=== PATIENT | female | born 1935 | race Caucasian/White ===

== ENCOUNTER 2022-08-04 10:51 | Inpatient (IN) | payer MEDICARE, BC, SELFPAY ==
[2022-08-04] VITALS (31 sets, daily range): BP systolic 105–159; BP diastolic 57–93; PULSE 51–75; RESP 14–27; TEMP 36.6–36.9; O2SAT 94–98; BMI 23.2; BMI 24.5
--- NOTE | 2022-08-04 10:55 | ECG_ITS ---
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 Measurements Intervals [place] Rate: 62 P: 34 SD: 181 QRS: 12 QRSD: 82 T: 51 QT: 402 QTc: 409 Interpretive Statements SINUS RHYTHM No previous ECG available for comparison Electronically Signed On 08-06-2022 23:03:00 CDT by Irlanda Rey M.D. [id number]
--- NOTE | 2022-08-04 10:58 | XRR_ITS ---
PROCEDURE INFORMATION: Exam: XR Chest Exam date and time: 08/04/2022 11:10 AM Age: 86 years old Clinical indication: Pain; Chest pressure; Additional info: Chest pain TECHNIQUE: Imaging protocol: Radiologic exam of the chest. Views: 1 view. COMPARISON: No relevant prior studies available. FINDINGS: Lungs: No pulmonary vascular congestion, pulmonary edema or pneumonia. Minimal scarring or atelectasis in the lateral left lung base. Pleural spaces: No pleural effusion or pneumothorax. Heart/Mediastinum: The cardiac silhouette is not enlarged. Prior CABG. The mediastinal contours are normal. Vasculature: The thoracic aorta is tortuous. Bones/joints: Prior sternotomy. XR/XR chest 1V portable [id number] IMPRESSION: No acute finding.
--- NOTE | 2022-08-04 10:58 | W.ED.CHESTPA ---
HPI - Chest Pain General: Chief Complaint: Chest Pain Stated Complaint: CHEST PAIN Time Seen by Provider: 08/04/22 10:58 Source: patient Mode of arrival: EMS History of Present Illness: 86-year-old female presents emergency room with chest pain and began at around 7 AM this morning. She has been having chest pain for the last several weeks she has a known history of coronary artery disease and usually is seen at [facility] [place] [place] she previously had a CABG several years ago. She had seen her focused factory manager recently when she has an angiogram scheduled because of these recurrent episodes of chest pain. She did get relief of chest pain after given sublingual nitroglycerin by [facility]. She is still stating her pain is 3 out of 10 radiating into the arms and caused her to be short of breath and somewhat diaphoretic. MD complaint: chest pain and chest heaviness Onset (ago): hour(s) Timing of current episode: episodic Prior episodes: Yes Onset: during rest Pain location: substernal and left chest Severity: moderate Quality: tightness, aching and heaviness Relieving factors: nitroglycerin Exacerbating factors: nothing Associated symptoms: Reports dyspnea; Deny abdominal pain, diaphoresis, fever(s), leg edema, nausea, palpitations, sense of impending doom, syncope or vomiting Treatment prior to arrival: aspirin and nitroglycerin Review of Systems Const: Denies: fever(s) or diaphoresis ENMT: Denies: throat pain, ear or mastoid pain, nasal discharge or nasal congestion Card: Reports: chest pain; Denies: palpitations, irregular heart rhythm, edema or syncope Resp: Reports: dyspnea; Denies: productive cough or non-productive cough GI: Denies: abdominal pain, nausea or vomiting : Denies: flank pain, difficulty voiding, dysuria, urinary frequency or urinary urgency Skin/Breast: Denies: rash or pruritus PFSH ED PFSH: Medical History (Updated 08/04/22 @ 12:53 by Marty Zapata DO) Coronary artery disease Hyperlipidemia Surgical History (Updated 08/04/22 @ 12:53 by Marty Zapata DO) History of appendectomy History of tonsillectomy Hx of coronary artery bypass graft Hx of hysterectomy Social History (Updated 08/04/22 @ 11:15 by Marty Zapata DO) Smoking and tobacco status: former smoker Alcohol intake: current Alcohol intake frequency: few times a month Physical Exam Const: COMMON NORMALS: no acute distress GENERAL APPEARANCE: cooperative and comfortable ORIENTATION/CONSCIOUSNESS: Yes awake, Yes oriented to person, Yes oriented to place and Yes oriented to time HENMT: COMMON NORMALS: normocephalic, atraumatic and hearing grossly normal bilaterally HEAD & SCALP: normocephalic and atraumatic Resp: COMMON NORMALS: normal respiratory effort, No retractions, No use of accessory muscles and clear to auscultation bilaterally AUSCULTATION: clear to auscultation bilaterally Cardio: COMMON NORMALS: regular rate, regular rhythm and No murmurs present (Cardio) RATE: regular rate RHYTHM: regular rhythm GI: COMMON NORMALS: Soft to palpation and No hepatosplenomegaly present AUSCULTATION: Yes normoactive bowel sounds PALPATION: Yes Soft to palpation, No Tenderness to palpation present (GI), No Guarding due to palpation present (GI) and Yes No hepatosplenomegaly present Extremity: COMMON NORMALS: normal to inspection, capillary refill normal, no clubbing, cyanosis or edema, no calf tenderness and no pedal edema Neuro: SENSORIUM/ORIENTATION: Yes oriented to person, Yes oriented to place and Yes oriented to time Skin: COMMON NORMALS: no rashes or lesions noted GENERAL SKIN EXAM: no rashes or lesions noted Course Vital Signs: Vital signs: Vital Signs Pulse Rate 59 L 08/04/22 12:03 Respiratory Rate 19 H 08/04/22 11:25 Blood Pressure 141/79 08/04/22 12:03 Pulse Oximetry 97 08/04/22 12:03 Oxygen Delivery Ky thod 08/04/22 12:03 MDM - Chest Pain Medical Decision Making Able to get records from [facility] they were scanned into the chart. In 2014 patient had angiogram which showed severe disease she had a two-vessel bypass. 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 It was decided at that time to treat with aggressive risk factor modification and medically. Since then she was generally doing well until the last few weeks when these episodes began. I discussed the findings with her EKG and troponins are normal so far but she is requiring Nitropaste which did not completely eliminate her pain and then we switch her to a nitro drip. Reviewed with cardiology. They felt it would be appropriate to keep the patient and finish the rule out. If she ruled out she could either be discharged home with more aggressive treatment and then follow-up with [place] as previously scheduled or if she wished we could go ahead and complete the heart catheterization here. She states she wants to have the heart cath done to find out what is going on. I discussed with Dr. Marquis and we consulted Dr. Summers orders written Medical Records I reviewed the patient's medical records. Lab Data I reviewed the patient's lab results. : 08/04/22 11:00 08/04/22 11:00 Radiology Impressions Chest X-Ray 08/04/22 10:58 IMPRESSION: No acute finding. Laboratory Results WBC 10.9 10^3/uL (4.0-10.0) H 08/04/22 11:00 RBC 4.41 10^6/uL (4.1-5.3) 08/04/22 11:00 Hgb 13.5 g/dL (11.5-15.3) 08/04/22 11:00 Hct 41.3 % (37.0-47.0) 08/04/22 11:00 MCV 93.7 fl (81-99) 08/04/22 11:00 MCH 30.6 pg (28.0-34.0) 08/04/22 11:00 MCHC 32.7 g/dL (30.0-36.0) 08/04/22 11:00 RDW 14.8 % (12.1-15.1) 08/04/22 11:00 Plt Count 220 10^3/cmm (130-400) 08/04/22 11:00 MPV 10.7 fL (7.4-10.4) H 08/04/22 11:00 Neut % (Auto) 54.9 % 08/04/22 11:00 Lymph % (Auto) 33.9 % 08/04/22 11:00 [place] % (Auto) 6.6 % 08/04/22 11:00 Eos % (Auto) 3.5 % 08/04/22 11:00 Baso % (Auto) 0.6 % 08/04/22 11:00 Neut # (Auto) 6.00 10^3/uL (1.8-7.7) 08/04/22 11:00 Lymph # (Auto) 3.7 10^3/uL (0.8-4.8) 08/04/22 11:00 [place] # (Auto) 0.7 10^3/uL (0.2-0.9) 08/04/22 11:00 Eos # (Auto) 0.4 10^3/uL (0.0-0.8) 08/04/22 11:00 Baso # (Auto) 0.1 10^3/uL (0.0-0.1) 08/04/22 11:00 Nucleated RBC % (auto) 0 % 08/04/22 11:00 Nucleated RBCs # 0.0 /100WBC 08/04/22 11:00 Sodium 134 mmol/L (136-145) L 08/04/22 11:00 Potassium 4.3 mmol/L (3.5-5.1) 08/04/22 11:00 Chloride 102 mmol/L (98-107) 08/04/22 11:00 Carbon Dioxide 22 mmol/L (22-29) 08/04/22 11:00 Anion Gap 14.3 (5-19) 08/04/22 11:00 BUN 14 mg/dL (8-23) 08/04/22 11:00 Creatinine 0.8 mg/dL (0.5-0.9) 08/04/22 11:00 GFR Calculation Not Reportable 08/04/22 11:00 Glucose 106 mg/dL (65-115) 08/04/22 11:00 Calculated Osmolality 279 mOsm/kg (285-295) L 08/04/22 11:00 Calcium 8.8 mg/dL (8.5-10.5) 08/04/22 11:00 Total Bilirubin 0.3 mg/dL (0.15-1.2) 08/04/22 11:00 AST 20 U/L (0-32) 08/04/22 11:00 ALT 16 U/L (0-33) 08/04/22 11:00 Alkaline Phosphatase 59 U/L (35-105) 08/04/22 11:00 Troponin T Baseline 9 ng/L (0-10) 08/04/22 11:00 Total Protein 6.3 g/dL (6.6-8.7) L 08/04/22 11:00 Albumin 3.6 g/dL (3.5-5.2) 08/04/22 11:00 Globulin 2.7 g/dL (1.3-4.6) 08/04/22 11:00 Discharge Plan Discharge Patient Disposition: Admitted As Inpatient Clinical Impression: Unstable angina pectoris, Coronary artery disease, Hx of coronary artery bypass graft Condition: Stable Coding Level of Care Code ED Process Chemist for Chg Fwd Exam Detailed
--- NOTE | 2022-08-04 11:00 | PC.NURSE ---
Patient transferred from [facility] stretcher to ER bed and hooked up to monitors with senior staff accountant at bedside.
[2022-08-04 11:12] LABS: Basophils # 0.1 10^3/uL (0.0-0.1); Basophils % 0.6 %; Eosinophils # 0.4 10^3/uL (0.0-0.8); Eosinophils % 3.5 %; Hematocrit 41.3 % (37.0-47.0); Hemoglobin 13.5 g/dL (11.5-15.3); Lymphocytes # 3.7 10^3/uL (0.8-4.8); Lymphocytes % 33.9 %; Mean Corpuscular HGB Conc 32.7 g/dL (30.0-36.0); Mean Corpuscular Hemoglobin 30.6 pg (28.0-34.0); Mean Corpuscular Volume 93.7 fl (81-99); Mean Platelet Volume 10.7 fL (7.4-10.4); Monocytes # 0.7 10^3/uL (0.2-0.9); Monocytes % 6.6 %; Neutrophils % 54.9 %; Nucleated Red Blood Cells % 0 %; Platelet Count 220 10^3/cmm (130-400); Red Blood Count 4.41 10^6/uL (4.1-5.3); Red Cell Distribution Width 14.8 % (12.1-15.1); White Blood Count 10.9 10^3/uL (4.0-10.0)
[2022-08-04] MEDS: enoxaparin 60 mg/0.6 mL Syringe SUBCUT ×2 (11:23→21:58)
[2022-08-04] MEDS: nitroglycerin 1 gm/inch oint Pkt 1 INCH TOPICAL (11:24)
[2022-08-04 11:36] LABS: Alanine Aminotransferase 16 U/L (0-33); Albumin Level 3.6 g/dL (3.5-5.2); Alkaline Phosphatase 59 U/L (35-105); Anion Gap 14.3 (5-19); Aspartate Amino Transferase 20 U/L (0-32); Blood Urea Nitrogen 14 mg/dL (8-23); Calcium 8.8 mg/dL (8.5-10.5); Carbon Dioxide 22 mmol/L (22-29); Chloride 102 mmol/L (98-107); Creatinine Clr Calc Pharmacy 43.8832; Globulin 2.7 g/dL (1.3-4.6); Glucose 106 mg/dL (65-115); Osmolality Calculated 279 mOsm/kg (285-295); Potassium 4.3 mmol/L (3.5-5.1); Sodium 134 mmol/L (136-145); Total Bilirubin 0.3 mg/dL (0.15-1.2); Total Protein 6.3 g/dL (6.6-8.7); Troponin(5th) Baseline 9 ng/L (0-10)
[2022-08-04] MEDS: nitroglycerin drip 50 MG/250 ML PREMIX IV (12:08)
--- NOTE | 2022-08-04 12:33 | PC.NURSE ---
Pt is tolerating Nitro drip initiation. Denies pain over 5 at this time; drip will remain at 10mcg/min at this time.
--- NOTE | 2022-08-04 13:00 | ECG_ITS ---
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 Measurements Intervals [place] Rate: 53 P: 0 [place]: 203 QRS: 23 QRSD: 82 T: 48 QT: 432 QTc: 409 Interpretive Statements SINUS BRADYCARDIA Compared to ECG 08/04/2022 10:57:51 Sinus rhythm no longer present Electronically Signed On 08-06-2022 23:16:04 CDT by Irlanda Rey M.D. [id number]
[2022-08-04 14:07] LABS: Troponin 5 2HR 8.64 ng/L (0-10)
--- NOTE | 2022-08-04 14:21 | P.HP_ITS ---
Providers/Chief Complaint Admitting Physician: Shade Capps MD Chief Complaint: CHEST PAIN History of Present Illness Sheila Ybarra is a 86 year old female with history of hypothyroidism, post two- vessel CABG in 2015 who gets most of her care at [facility] was brought into the ER through [facility] today. History taken through the patient and family member at bedside. As per the patient he has been having on and off episodes of chest pain for last 2 to 3 months more so related 2 weeks for which she had seen her outpatient construction sales representative diagnosed a few had scheduled her for an angiogram. Today patient was resting when she developed chest pain along with dizziness and nausea with feeling of chest pressure hence EMS was called and she was brought to the ER. Currently patient is on nitro drip. She denies of having any active chest pain or chest pressure currently. She states she has been taking her medications re gularly though there have been times on and off in between when she forgets. In the ER she was given 1 full dose of Lovenox and started on nitro drip. Review of Systems General: Reports: 10 or more systems reviewed and unremarkable except in HPI and below Const: Denies: fever(s), chills, body aches, change in appetite, change in weight, malaise, night sweats, diaphoresis, change in sleep pattern, daytime sleepiness or snoring Eyes: Denies: change in vision, blurry vision, photophobia, eye discomfort or eye discharge ENMT: Denies: throat pain, enlarged tonsils, hoarseness, mouth pain, oral sores, dry mouth, tinnitus, nasal congestion or post nasal drip Card: Denies: chest pain, palpitations, irregular heart rhythm, edema, swelling of feet/ankles, lightheadedness, syncope, pre-syncope, dyspnea on exertion, orthopnea, leg pain with exertion or acrocyanosis Resp: Denies: dyspnea, productive cough, non-productive cough, wheezing, stridor, pain on inspiration, change in phlegm color, hemoptysis or chest congestion GI: Denies: abdominal pain, nausea, vomiting, hematemesis, coffee ground emesis, dysphagia, heartburn, diarrhea, constipation, bloating, GI cramping, change in bowel habits, pain on defecation, hematochezia or melena : Denies: flank pain, dysuria, urinary frequency, urinary urgency, urinary hesitancy, nocturia or hematuria Musc: Denies: neck pain, back pain, extremity pain, joint pain, joint swelling, joint redness, joint stiffness or limited range of motion Neuro: Denies: headache(s), numbness in extremities, weakness in extremities, sensory changes, lack of coordination, difficulty walking, frequent falls, dizziness, vertigo, confusion, Slurred speech present, difficulty communicating thoughts or seizure-like activity Psych: Denies: anxiety, depression, mood swings, panic attacks, hopelessness or irritability Endo: Denies: polyuria, polydipsia, tired all the time, cold intolerance, excessive sweating, flushing or heat intolerance Adriano/Lymph: Denies: easy bruising or easy bleeding All/Imm: Denies: tongue swelling, facial swelling or acute wheezing Medications/Allergies Home Medications Medication Instructions Recorded Confirmed Last Taken Type aspirin 81 mg chewable tablet 81 mg PO DAILY 08/04/22 08/04/22 08/04/22 History 4 tabs cetirizine 10 mg tablet 10 mg PO DAILY PRN Allergy Symptoms 08/04/22 08/04/22 Unknown History clopidogrel 75 mg tablet 75 mg PO DAILY 08/04/22 08/04/22 08/03/22 History cyanocobalamin (vitamin B-12) 1,000 mcg PO DAILY 08/04/22 08/04/22 08/03/22 History 1,000 mcg tablet (Vitamin B-12) gabapentin 300 mg capsule See Rx Instructions .Route .COMPLEX 08/04/22 08/04/22 08/03/22 History levothyroxine 75 mcg tablet 75 mcg PO DAILY 08/04/22 08/04/22 08/04/22 History pantoprazole 40 mg tablet,delayed 40 mg PO DAILY 08/04/22 08/04/22 08/04/22 History release simvastatin 40 mg tablet 40 mg PO DAILY 08/04/22 08/04/22 08/03/22 History tramadol 50 mg tablet 50 mg PO BID PRN Pain 08/04/22 08/04/22 Unknown History Allergies Allergy/AdvReac Type Severity Reaction Status Date / Time hydrocodone Allergy Unknown Unknown Verified 08/04/22 10:56 PFSH Acute PFSH: Medical History (Updated 08/04/22 @ 14:30 by Shade Capps MD) Coronary artery disease Hyperlipidemia Surgical History (Updated 08/04/22 @ 12:53 by Marty Zapata DO) History of appendectomy History of tonsillectomy Hx of coronary artery bypass graft Hx of hysterectomy Social History (Updated 08/04/22 @ 11:15 by Marty Zapata DO) Smoking and tobacco status: former smoker Alcohol intake: current Alcohol intake frequency: few times a month Vitals/I&O/Wt Last Vital Signs Pulse 59 L 08/04/22 12:03 Resp 19 H 08/04/22 11:25 BP 134/73 08/04/22 13:38 Pulse Ox 97 08/04/22 13:38 O2 Del Method 08/04/22 13:38 08/03/22 08/04/22 08/04/22 22:59 06:59 14:59 Intake Total 3 / 3 Balance 3 / 3 Weight last 48 hrs Weight 57.606 kg Physical Exam Narrative: General: No acute distress, AO x3, currently chest pain-free on nitro drip HEENT: PERRLA, pupils bilaterally equal and reactive Chest: Normal vesicular breath sounds, no added sounds, equal good air entry bilaterally CVS: S1-S2 regular, no murmurs, no tachycardia, no gallops, no rubs Abdomen: Soft, nontender, no organomegaly, bowel sounds present Neuro: No focal deficits, no facial deformity, AO x3, power 5/5 in all limbs Data : 08/04/22 11:00 08/04/22 11:00 A&P Assessment and plan (1) Unstable angina pectoris: With history of two-vessel CABG. Worsening angina over the last 3 months. Currently at rest. On nitro drip. Been scheduled for cardiac angiogram as an outpatient by her construction sales representative. Continue with nitro drip. Aspirin 325 mg 1 time, atorvastatin 80 mg 1 time. Lovenox 1 mg/kg body weight every 12 hourly. Cycle troponin, morphine as needed. Continue home dose of aspirin, Plavix, statin. Cannot use beta-maribel given bradycardia. Check echocardiogram. Check A1c, lipid panel, D-dimer, INR. Cardiology consulted from the ER. Patient will most likely need a cardiac angiogram. Patient is agreeable. (2) Hx of coronary artery bypass graft: (3) Hyperlipidemia: (4) Bradycardia: Plan Full code. N.p.o. till seen by cardiology. 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
--- NOTE | 2022-08-04 14:25 | USCV_ITS ---
Sheila Ybarra Age: 86 Gender: F : 1935 Exam Date: 08/04/2022 16:17 Ordering Phys: Shade Capps MD Technologist: Exam [place] [facility] [place]: chest pain BP: 155 / 72 HR: 60 Rhythm: Sinus Technical Quality: Suboptimal MEASUREMENTS (Male / Female) Normal Values 2D ECHO LV Diastolic Diameter PLAX 3.7 cm 4.2 - 5.9 / 3.9 - 5.3 cm LV Systolic Diameter PLAX 1.9 cm IVS Diastolic Thickness 0.8 cm 0.6 - 1.0 / 0.6 - 0.9 cm IVS Systolic Thickness 1.1 cm LVPW Diastolic Thickness 0.9 cm 0.6 - 1.0 / 0.6 - 0.9 cm LVPW Systolic Thickness 1.2 cm LVOT Diameter 2.0 cm LV Ejection Fraction 2D Teich 79.7 % LV Ejection Fraction MOD 2C 68.2 % LV Ejection Fraction 2C AL 68.3 % LA Diameter 3.5 cm IVC Diameter 1.0 cm M-MODE Aortic Annulus Diameter 2.4 cm LA Ao Ratio MM 1.6 MV E Point Septal Separation 1.0 cm DOPPLER AV Peak Velocity 130.0 cm/s LVOT Peak Velocity 87.0 cm/s AV Area Cont Eq vti 2.0 cm squared AV Area Cont Eq pk 2.0 cm squared MV Area PHT 5.0 cm squared Mitral E to A Ratio 0.7 MV E' Velocity 44.0 cm/s Mitral E to MV E' Ratio 11.1 Mitral E to LV E' Lateral Ratio 11.0 Mitral E to LV E' Septal Ratio 11.4 TR Peak Velocity 225.3 cm/s TR Peak Gradient 20.3 mmHg TV Peak E Velocity 88.0 cm/s Right Atrial Pressure 3.0 mmHg Pulmonary Artery Systolic Pressu 23.3 mmHg PV Peak Velocity 92.0 cm/s FINDINGS Left Ventricle Normal left ventricular size, systolic function and wall thickness, with no diagnostic regional wall motion abnormalities. Left ventricular ejection fraction is estimated at 55-60 %. Grade I diastolic dysfunction (abnormal relaxation filling pattern), normal to mildly elevated filling pressures. Abnormal (paradoxical) septal motion consistent with postoperative status. Right Ventricle Normal right ventricular size and systolic function. Right ventricular systolic pressure 21 mmHg. Right Atrium Normal right atrial size. Left Atrium Mildly increased left atrial size. Mitral Valve Mild mitral annular calcification. Mildly thickened mitral valve. No mitral valve stenosis. Trace mitral valve regurgitation. Aortic Valve Aortic valve not well visualized. No aortic valve stenosis. Mild aortic valve regurgitation. Tricuspid Valve Structurally normal tricuspid valve. Trace tricuspid valve regurgitation. Pulmonic Valve Pulmonic valve not well visualized. No significant pulmonary valve regurgitation. Pericardium No pericardial effusion. Aorta Normal size aortic root and proximal ascending aorta. IVC Normal sized inferior vena cava. CONCLUSIONS 1. Normal left ventricular size, systolic function and wall thickness, with no diagnostic regional wall motion abnormalities. Left ventricular ejection fraction is estimated at 55 %. Grade I diastolic dysfunction (abnormal relaxation filling pattern), normal to mildly elevated filling pressures. 2. Mildly increased left atrial size. 3. Mild aortic valve regurgitation. 4. No prior similar studies to compare. Irlanda Rey MD (Electronically Signed) Final Date: 04 August 2022 18:02 S
[2022-08-04 14:49] LABS: INR 1.11 (0.8-1.2)
--- NOTE | 2022-08-04 14:51 | ECG_ITS ---
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 Measurements Intervals [place] Rate: 58 P: 28 SC: 196 QRS: 8 QRSD: 92 T: 50 QT: 443 QTc: 437 Interpretive Statements SINUS BRADYCARDIA Compared to ECG 08/04/2022 13:00:25 No significant changes Electronically Signed On 08-06-2022 23:02:37 CDT by Irlanda Rey M.D. [id number]
[2022-08-04 14:52] LABS: D Dimer 1.22 ug/mIFEU (0-0.59)
--- NOTE | 2022-08-04 14:52 | PM.CONSULT ---
Providers/Reason For Consult Consulting Physician/Specialty*: Dr. Rey, Cardiology Reason for Consult*: Chest pain Attending Physician: Shade Capps MD History of Present Illness History of Present Illness Sheila Ybarra is a 86 year old female with past medical history of coronary artery disease, s/p CABG x2 on 20 November 2014 (POZO to distal LAD and vein graft to obtuse marginal), dyslipidemia, hypothyroidism, hypertension, gastroesophageal reflux disease, history of TIA and arthritis. She usually follows up with Dr. Moreno at [facility]. Since May she has been having on and off episodes of chest discomfort described as someone sitting on her chest retrosternal in location. She saw her hospice physician and was due to have outpatient coronary angiogram. Earlier today her chest discomfort was worse and hence she decided to come to the hospital. [facility] brought her here. Patient was started on nitroglycerin drip and at the time of evaluation she is chest pain-free. She complains of associated shortness of breath and intermittent positional dizziness. Denies any nausea or vomiting or diaphoresis. No productive cough or URI-like symptoms or UTI-like symptoms. No recent sick contacts. Her most recent coronary angiogram was on 30 January 2017 that showed ostial left main 60% stenosis, mid LAD 80% stenosis, 80% ostial circumflex stenosis. RCA with scattered 40% stenosis. Patent SVG to OM1 and POZO to LAD. Normal LV function with EF of 60% and normal gradient across aortic valve. EKG in the ER revealed sinus rhythm with no ST-T wave changes suggestive of ischemia. Review of Systems Const: Denies: fever(s), chills, change in appetite, change in weight, fatigue or malaise Eyes: Denies: change in vision ENMT: Denies: throat pain, swelling of lips/tongue, oral sores, bleeding gums, nasal congestion or epistaxis Card: Reports: chest pain, lightheadedness and dyspnea on exertion; Denies: irregular heart rhythm, edema, syncope or orthopnea Resp: Denies: dyspnea or chest congestion GI: Denies: abdominal pain, nausea, vomiting, hematemesis, heartburn, diarrhea, constipation, change in bowel habits, hematochezia or melena : Denies: difficulty voiding, dysuria, oliguria or hematuria Musc: Denies: back pain, extremity swelling, joint pain or muscle weakness Skin/Breast: Denies: rash or erythema Neuro: Reports: dizziness; Denies: headache(s), weakness in extremities, difficulty walking or confusion Psych: Denies: anxiety, depression or irritability Endo: Denies: tired all the time Adriano/Lymph: Denies: easy bruising, easy bleeding, petechiae or purpura All/Imm: Denies: throat swelling, tongue swelling or acute wheezing Medications/Allergies Home Medications Medication Instructions Recorded Confirmed Last Taken Type aspirin 81 mg chewable tablet 81 mg PO DAILY 08/04/22 08/04/22 08/04/22 History 4 tabs cetirizine 10 mg tablet 10 mg PO DAILY PRN Allergy Symptoms 08/04/22 08/04/22 Unknown History clopidogrel 75 mg tablet 75 mg PO DAILY 08/04/22 08/04/22 08/03/22 History cyanocobalamin (vitamin B-12) 1,000 mcg PO DAILY 08/04/22 08/04/22 08/03/22 History 1,000 mcg tablet (Vitamin B-12) gabapentin 300 mg capsule See Rx Instructions .Route .COMPLEX 08/04/22 08/04/22 08/03/22 History levothyroxine 75 mcg tablet 75 mcg PO DAILY 08/04/22 08/04/22 08/04/22 History pantoprazole 40 mg tablet,delayed 40 mg PO DAILY 08/04/22 08/04/22 08/04/22 History release simvastatin 40 mg tablet 40 mg PO DAILY 08/04/22 08/04/22 08/03/22 History tramadol 50 mg tablet 50 mg PO BID PRN Pain 08/04/22 08/04/22 Unknown History Allergies Allergy/AdvReac Type Severity Reaction Status Date / Time hydrocodone Allergy Unknown Unknown Verified 08/04/22 10:56 ciprofloxacin AdvReac Intermediate ADR-Shakine Verified 08/04/22 15:45 ss Current Medications Generic Name Dose Route Start Last Admin Trade Name Freq PRN Reason Stop Dose Admin Nitroglycerin/Dextrose 50 mg in 250 mls @ 0 mls/hr 08/04/22 12:00 08/04/22 13:08 Nitroglycerin Drip IV 15 mcg/min .Q0M JOSH 4.5 mls/hr Titration Protocol Per Protocol PFSH Acute PFSH: Medical History Coronary artery disease Hyperlipidemia Surgical History History of appendectomy History of tonsillectomy Hx of coronary artery bypass graft Hx of hysterectomy Social History Smoking and tobacco status: former smoker Alcohol intake: current Alcohol intake frequency: few times a month Vitals/I&O/Wt Last Vital Signs Pulse 59 L 08/04/22 12:03 Resp 19 H 08/04/22 11:25 BP 134/73 08/04/22 13:38 Pulse Ox 97 08/04/22 13:38 O2 Del Method 08/04/22 13:38 08/03/22 08/04/22 08/04/22 22:59 06:59 14:59 Intake Total 3 / 3 Balance 3 / 3 Weight last 48 hrs Weight 127 lb Physical Exam Narrative: GENERAL: Averagely built and averagely nourished in no acute distress HEENT: Extraocular movement intact. No pallor or icterus. NECK: central trachea, No JVD, No carotid bruit. CARDIOVASCULAR SYSTEM: S1-S2 regular. No murmur rubs or gallops. RESPIRATORY SYSTEM: Chest clear to auscultation. No wheezes rhonchi or rubs heard. No use of accessory muscles. ABDOMEN: Soft, nontender and nondistended. Normal bowel sounds present. No hepatosplenomegaly appreciated. EXTREMITIES: No cyanosis or edema. No signs of chronic venous insufficiency. 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 No focal neurological deficits. SKIN: Normal turgor and temperature. PSYCH: Normal insight and judgment. Data : 08/04/22 11:00 08/04/22 11:00 A&P Assessment and plan (1) Unstable angina pectoris: Currently patient is on nitro gtt. @ 15 -Patient is currently chest pain-free. -Received therapeutic Lovenox in the ER and is on aspirin and Plavix chronically at home. Risks and benefits were discussed with the patients. Possible complications including risk of heart attack stroke and , coronary perforation, coronary dissection, arrhythmia, cardiac tamponade in urgent CABG were discussed with the patient as well. Plan is to proceed for the procedure in the morning. (2) Coronary artery disease: S/p CABG x2 (3) Hyperlipidemia: Plan Hypertension Hypothyroidism History of TIA Gastroesophageal reflux disease Osteoarthritis Consult Attestations Time Spent in Patient Care: Greater than 35 minutes Coding Level of Care Code Acute Associate Media Director for Taishag Fwd Diagnoses Unstable angina pectoris I20.0 Coronary artery disease I25.10 Hyperlipidemia E78.5
[2022-08-04] MEDS: aspirin 325 mg EC Tablet PO (14:55)
[2022-08-04] MEDS: atorvastatin 40 mg Tablet 80 MG PO (14:55)
--- NOTE | 2022-08-04 15:10 | PC.NURSE ---
received into room 276-2 from er, via stretcher, at 1445.report received.pt is alert and awake and oriented x 4.sr/sb on monitor.on ntg drip at 15 mcgs.vss.denies any chest pain or any pain at all.oriented to room environment.instructed to notify staff for any sob,chest pain,sweating,nausea or for any concerns at all.pt verb understanding of instructions.
[2022-08-04 15:15] LABS: Troponin 5 2HR Delta -0.36 ABS# (0-10)
[2022-08-04 15:17] LABS: Iron 61 ug/dL (37-145); NT Pro B Type Natriuretic Pept 195 pg/mL (0-450); Percent Saturation 20.9 % (20-50); Total Iron Binding Capacity 291 mcg/dl; Unsaturated Iron Binding 230 ug/dL (112-347); Vitamin B12 1118 pg/mL (232-1245)
[2022-08-04 15:41] LABS: Urine Appearance Clear (CLEAR); Urine Color Yellow (Yellow); pH Urine 7 (5-7)
[2022-08-04 15:42] LABS: Add Urine Culture? No; Add Urine Microscopic? YES; Bacteria Urine TRACE /hpf; Bilirubin Urine Neg (Negative); Blood Urine Neg (Negative); Glucose Urine UA Norm (Normal); Ketones Urine Negative (Negative); Leukocyte Esterase Urine Trace (Negative); Nitrate Urine Negative (Negative); Protein Urine Neg (Negative); Specific Gravity, Urine 1.005 (1.005-1.030); Squamous Epithelial Cell Urine RARE /hpf (0-5); Urobilinogen Urine Norm (Negative); WBC Urine 0-4 /hpf (0-5)
[2022-08-04 15:46] LABS: Amphetamines Screen Urine Negative (Negative); Barbiturates Screen Urine Negative (Negative); Benzodiazepines Screen Urine Negative (Negative); Cocaine Screen Urine Negative (Negative); Opiate Screen Urine Negative (Negative); PCP Screen Urine Negative (Negative); THC Screen Urine Negative (Negative)
[2022-08-04 16:51] LABS: Thyroid Stimulating Hormone 1.79 uIU/mL (0.27-4.20)
[2022-08-04 17:15] LABS: Folate Level > 20.0 ng/mL (4.8-37.3)
--- NOTE | 2022-08-04 17:19 | ECG_ITS ---
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 Measurements Intervals Everetts Rate: 53 P: -2 MD: 205 QRS: 5 QRSD: 87 T: 46 QT: 448 QTc: 423 Interpretive Statements SINUS BRADYCARDIA Compared to ECG 08/04/2022 14:51:02 No significant changes Electronically Signed On 08-06-2022 23:13:55 CDT by Irlanda Rey M.D. [id number]
[2022-08-04 17:48] LABS: Troponin 5 6HR 9.23 ng/L (0-10)
[2022-08-04] MEDS: ferrous gluconate 324 mg Tablet PO (18:05)
--- NOTE | 2022-08-04 18:28 | PC.NURSE ---
no chest pain reported since admission to floor.nitro drip remains at 15 mcg/min.bp stable
[2022-08-04 18:32] LABS: Troponin 5 6HR Delta 0.23 ng/L (0-12)
[2022-08-04] MEDS: gabapentin 300 mg Capsule PO (19:47)
[2022-08-05] VITALS (93 sets, daily range): BP systolic 96–154; BP diastolic 52–76; PULSE 48–87; RESP 12–50; TEMP 36.4–37; O2SAT 91–98
[2022-08-05 05:02] LABS: Basophils # 0.1 10^3/uL (0.0-0.1); Basophils % 0.5 %; Eosinophils # 0.4 10^3/uL (0.0-0.8); Eosinophils % 4.1 %; Hematocrit 41.3 % (37.0-47.0); Hemoglobin 13.4 g/dL (11.5-15.3); Lymphocytes # 3.9 10^3/uL (0.8-4.8); Mean Corpuscular HGB Conc 32.4 g/dL (30.0-36.0); Mean Corpuscular Hemoglobin 30.6 pg (28.0-34.0); Mean Corpuscular Volume 94.3 fl (81-99); Mean Platelet Volume 10.9 fL (7.4-10.4); Monocytes # 0.7 10^3/uL (0.2-0.9); Monocytes % 6.5 %; Neutrophils # 5.16 10^3/uL (1.8-7.7); Neutrophils % 50.6 %; Nucleated Red Blood Cells % 0 %; Platelet Count 191 10^3/cmm (130-400); Red Blood Count 4.38 10^6/uL (4.1-5.3); Red Cell Distribution Width 15.1 % (12.1-15.1); White Blood Count 10.2 10^3/uL (4.0-10.0)
[2022-08-05 05:20] LABS: Estmated Average Glucose 108; Hemoglobin A1C 5.4 % (4.0-6.0)
[2022-08-05 05:30] LABS: Alanine Aminotransferase 15 U/L (0-33); Albumin Level 3.6 g/dL (3.5-5.2); Alkaline Phosphatase 59 U/L (35-105); Anion Gap 13.1 (5-19); Aspartate Amino Transferase 20 U/L (0-32); Blood Urea Nitrogen 9 mg/dL (8-23); Calcium 8.6 mg/dL (8.5-10.5); Carbon Dioxide 23 mmol/L (22-29); Chloride 105 mmol/L (98-107); Cholesterol 165 mg/dL (0-200); Globulin 2.5 g/dL (1.3-4.6); Glucose 82 mg/dL (65-115); HDL Cholesterol 55 mg/dL (60-100); LDL Cholesterol Calculated 91 mg/dL (50-129); Magnesium 2.3 mg/dL (1.7-2.3); Osmolality Calculated 282 mOsm/kg (285-295); Phosphorus 2.9 mg/dL (2.5-4.5); Potassium 4.1 mmol/L (3.5-5.1); Sodium 137 mmol/L (136-145); Total Bilirubin 0.5 mg/dL (0.15-1.2); Total Protein 6.1 g/dL (6.6-8.7); Triglycerides 93 mg/dL (0-150); VLDL Cholestrol Calculation 19 mg/dL (0-30)
[2022-08-05] MEDS: sodium chloride 0.9% 1,000 ML 50 ML IV (05:45)
[2022-08-05] MEDS: diphenhydrAMINE 50 mg Capsule PO (07:49)
[2022-08-05] MEDS: ferrous gluconate 324 mg Tablet PO ×2 (07:49→17:39)
--- NOTE | 2022-08-05 08:37 | XACV_ITS ---
Exam Room: [facility] Ht: 157 cm Wt: 61 kg BSA: 1.64 m2 Gender: Female : 1935 Exam Priority: Routine Procedure(s): Procedure Description: Diagnostic procedure Procedure Description: Venous Graft Catheterization Procedure Description: POZO Graft Catheterization Procedure Description: Coronary Angiography Diagnostic Cath Status: Urgent Diagnostic Findings * 86-year-old woman with past medical history of CAD s/p CABG x2 (POZO to distal LAD and vein graft to obtuse marginal in November 2014), dyslipidemia, hypertension, hypothyroidism, h/o TIA and gastroesophageal reflux disease. She presented with worsening chest discomfort described as someone sitting on her chest retrosternal location and was started on nitroglycerin drip. * Angiography shows a right coronary dominant system. * Normal caliber left main with ostial 60% stenosis. * Normal caliber left anterior descending artery that wraps around the apex. Mid LAD discrete 80% stenosis. * Circumflex artery with ostial 70% stenosis. Mid circumflex with mild 20% stenosis. * Right coronary artery with minor luminal irregularities. * Patent saphenous venous graft to first obtuse marginal. * Patent POZO to LAD. Conclusions 1. Right coronary artery with minor luminal irregularities. 2. Patent saphenous venous graft to first obtuse marginal. 3. Patent POZO to LAD. Recommendations * Return to inpatient for close monitoring and routine cath care. * Risk factor modification for secondary prevention. * Statin and aspirin 81mg lifelong, if tolerated. Pressures Phase:Rest AO : 76 / 49 ( 63 ) @ 10:26:00 AM 71 / 66 ( 50 ) @ 10:33:00 AM 117 / 54 ( 80 ) @ 10:49:00 AM Clinical Evaluation EBL: 5mL-10mL Procedural Details Procedure Consent Obtained. Admit Source: In Patient. Pre-Procedure Time Out. Identified patient by full name and date of as verbalized by the patient/guarantor. Does the consent match the physician's order: Yes. Accurate & Complete Informed Consent: Yes. Inpatient/Outpatient History & Physical on Chart: Yes. If H&P is completed, is and addenduem needed: N/A; If yes, is the addendum complete: N/A. Visualize and Verify Site with Patient/Guarantor: N/A. Relevant Radiology Images available: N/A. Pre-op teaching completed and patient verbalized understanding. The risks, benefits, and alternatives of sedation and/or procedure were discussed by physician. The patient agrees to continue. Procedure started. [facility] Clinical Fraility Score: 4: Vulnerable. 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 Chest Pain Symptom Assessment: Typical Angina Symptoms. Correct patient, site and procedure confirmed by cath team. Current diagnosis: Unstable angina. PERRLA. Strong, equal hand lead vulcanizing operator bilaterally. Lungs clear x 5 lobes. IV Site on Arrival: 20 gauge in the right forearm. IV Fluids: 0.9% NaCl at KVO. 100 mL infused prior to lab technician. Pre Procedural Pulses: bilateral dorsalis pedis was 3+. Pre Procedural Pulses: bilateral posterior tibial was 3+. Oxygen started at 2liters/min via nasal canula. right groin was prepped with chloroprep then draped in the usual sterile fashion. left groin was prepped with chloroprep then draped in the usual sterile fashion. Baseline sample Acquired. HR: 59 BPM. Physician notified. Physician arrived. Physician scrubbed in. Immediate Pre-Procedure Time Out. Correct Patient: Yes; Correct Procedure: Yes; Correct Site: Yes; Correct Patient Position: Yes; Correct Supplies: Yes; Dried Flammable Prep: Yes; Blood Products Available: N/A;. Lidocaine 1% infiltrated to the right groin. Arterial access obtained with micropuncture set. A 5 albanian JL4 catheter in over wire. Unable to engage catheter. Catheter removed over the standard wire. A 6 albanian JL5 catheter in over wire. Unable to engage catheter. Catheter removed over the standard wire. A 6 albanian JL3.5 catheter in over wire. Multiple views taken of left coronary artery. Catheter out. A 5 albanian JR4 catheter in over wire. Multiple views taken of right coronary artery. SVG's to OM visualized and patent. Exchange wire inserted into JR4. Catheter removed. A 5 albanian IM catheter in over wire. POZO to LAD visualized. Catheter out. A Suture was successful obtaining hemostatsis at the Right Femoral artery insertion site. Sheath(s) sutured into position with 2-0 silk and sterile 4x4's and Op-site applied over the site. No oozing or signs and symptoms of hematoma noted. Post Procedure: Pulses reassessed and unchanged. PERRLA. Strong, equal hand lead vulcanizing operator bilaterally. No VTE prophylaxis required. Medication's Wasted: Lidocaine 1% = 3 mL. Medication's Wasted: Other = Fentanyl 50 mcg. Medication's Wasted: Other = Versed 1mg. Total IV fluids: 97 mL. Post-op diagnosis: Non obstructive CAD, Patent grafts. Complications: none. Estimated blood loss: 5mL-10mL. Responsiveness - Normal response to verbal stimuli; alert and oriented, PERRLA. Airway - Unaffected, no intervention required; spontaneous ventilation. Circulation: W/N/L, pulses unchanged. Nausea/Vomiting: No. Procedure completed. Patient transferred by bed to [facility]. Vital chart was stopped. Access Site Site: Right Femoral artery Sheath Size: 6 Fr Hemostasis Method: Suture Hemostasis Success: Successful Procedure Medications Start: 9:16 AM Stop: 9:16 AM Medication: Versed Amount: 1 mg Route: I.V. Start: 9:16 AM Stop: 9:16 AM Medication: Fentanyl Amount: 50 mcg Route: I.V. Start: 9:20 AM Stop: 9:20 AM Medication: Versed Amount: 1 mg Route: I.V. Start: 9:52 AM Stop: 9:52 AM Medication: Heparin Amount: 4000 units Route: I.V. I, the attending physician, have reviewed and verified all procedure medications. Yes, all medications given per verbal order History/Risk Factors Hypertension: Yes Dyslipidemia: Yes Peripheral Arterial Disease (PAD): No Myocardial Infarction (DC): No Obesity: No Renal Disease: No Tobacco Use: Former Prior Interventions PCI: No CABG: Yes Valve Surgery: No Report Signatures Amended by Irlanda Rey MD on 08/07/2022 04:39 PM Finalized by Irlanda Rey MD on 08/07/2022 04:38 PM
[2022-08-05] MEDS: atorvastatin 40 mg Tablet 20 MG PO (08:50)
[2022-08-05] MEDS: pantoprazole DR 40 mg Tablet PO (08:50)
[2022-08-05] MEDS: levothyroxine 75 mcg Tablet PO (08:51)
[2022-08-05] MEDS: aspirin 81 mg Chew Tablet PO (08:51)
[2022-08-05] MEDS: clopidogrel 75 mg Tablet PO (08:51)
[2022-08-05] MEDS: gabapentin 300 mg Capsule PO (08:51)
--- NOTE | 2022-08-05 09:07 | W.PM.OPSUD ---
Surgery/Procedure H&P Update DATE OF PROCEDURE: August 05, 2022 DATE H&P PERFORMED: 08/04/22 H&P UPDATE INFORMATION: I have reviewed H&P completed within last 30 days, I have examined patient prior to procedure and No changes to prior documentation PREOP DIAGNOSIS: Unstable angina PRIMARY INDICATION FOR PROCEDURE: Unstable angina PLANNED PROCEDURE: Operation Date: 08/05/22 09:00 Proposed Procedures p Cardiac Catheterization(Left) - Irlanda Rey MD PATIENT REASSESSED PRIOR TO SEDATION, WITH NO CHANGE NOTED: Yes PHYSICAL EXAM: alert, oriented x 3, clear to auscultation bilaterally and regular rate & rhythm AIRWAY EVAL/ANESTHESIA PLAN: normal airway, ASA III, Monitored Anesthesia, Local Anesthesia, Risks, benefits & alternatives of sedation and/or procedure discussed and Patient agrees to continue as planned
--- NOTE | 2022-08-05 09:13 | PC.NURSE ---
patient left floor at 0900 for labor relations specialist.
[2022-08-05] MEDS: ondansetron 2 mg/ML SDV 2 mL 4 MG IVP ×2 (11:17→19:29)
--- NOTE | 2022-08-05 11:55 | PC.NURSE ---
Pt returned from laboratory monitor at 1014 with right femoral sheath in place. No hematoma noted on arrival. Vitals stable. Patient instructed to leave leg straight until sheath is removed and then afterward. Handoff report received from laboratory monitor. Family with patient at bedside.
[2022-08-05] MEDS: sodium chloride 0.9% 1,000 ML 75 ML IV ×2 (12:54→19:31)
--- NOTE | 2022-08-05 13:09 | P.PN_ITS ---
Subjective Subjective: This morning. Family at bedside. Patient just returned from cardiac catheterization procedure. Still slightly drowsy. Denies any chest pain, shortness of breath at this time. Vitals/I&O/Wt Last Vital Signs Temp 98.6 F 08/05/22 07:41 Pulse 51 L 08/05/22 11:58 Resp 20 H 08/05/22 11:58 BP 149/68 08/05/22 11:58 Pulse Ox 95 08/05/22 11:58 O2 Del Method 08/05/22 11:58 08/04/22 08/05/22 08/05/22 22:59 06:59 14:59 Intake Total 370 / 373 90.375 / 90.375 Output Total 300 / 300 Balance 70 / 73 90.375 / 90.375 Weight last 48 hrs Weight 63.56 kg Weight 60.923 kg Weight 57.606 kg Physical Exam Narrative: General: No acute distress, slightly drowsy, is postprocedure., currently chest pain-free laying in bed. HEENT: EOMI Chest: Chest clear to auscultation CVS: S1-S2 regular, no gross murmurs Abdomen: Soft, nontender, no organomegaly, bowel sounds present Neuro: Nonfocal. Data : 08/05/22 04:41 08/05/22 04:41 A&P Assessment and plan (1) Unstable angina pectoris: With history of two-vessel CABG.? Worsening angina over the last 3 months.? Currently at rest. On nitro drip. Been scheduled for cardiac angiogram as an outpatient by her professor of special education. Aspirin 325 mg 1 time, atorvastatin 80 mg 1 time. Lovenox 1 mg/kg body weight every 12 hourly. morphine as needed. Continue home dose of aspirin, Plavix, statin.? Cannot use beta-maribel given bradycardia. Check echocardiogram. Check A1c, lipid panel, D-dimer, INR. Cardiology consulted from the ER.? Patient had angiogram today. Official results pending. Will discuss with cardiology regarding results. Plan to medically manage at this time. Grafts are patent. (2) Coronary artery disease: S/p CABG x2 (3) Hyperlipidemia: Plan Hypertension Hypothyroidism History of TIA Gastroesophageal reflux disease Osteoarthritis Attestations Medical Necessity Statement*: Post cardiac catheterization today. Continue to monitor in hospital today for postop care. Reassess patient tomorrow. Possible discharge within next 24 to 48 hours. Coding Level of Care Code Acute Mixed Crop And Livestock Farmer for Chg Fwd Diagnoses Unstable angina pectoris I20.0 Coronary artery disease I25.10 Hyperlipidemia E78.5
[2022-08-05 13:57] LABS: Partial Thromboplastin Time 167.4 SECONDS (23.9-36.7)
--- NOTE | 2022-08-05 16:01 | CTR_ITS ---
PROCEDURE INFORMATION: Exam: CT Head Without Contrast Exam date and time: 08/05/2022 4:27 PM Age: 86 years old Clinical indication: Visual disturbance; Additional info: Blurry vision TECHNIQUE: Imaging protocol: Computed tomography of the head without contrast. Radiation optimization: All CT scans at this facility use at least one of these dose optimization techniques: automated exposure control; mA and/or kV adjustment per patient size (includes targeted exams where dose is matched to clinical indication); or iterative reconstruction. COMPARISON: No relevant prior studies available. RADIATION DOSE METRICS: Total DLP (mGy-cm): 1093.68 FINDINGS: Brain: Minimal hypodense changes are noted in the bilateral periventricular regions, likely related to chronic ischemic small vessel disease. There is mild brain parenchymal atrophy. No acute intracranial hemorrhage, mass effect or midline shift. Cerebral ventricles: No pathologic ventricular dilatation. Paranasal sinuses: Visualized sinuses are unremarkable. No fluid levels. Mastoid air cells: Visualized mastoid air cells are well aerated. Orbital cavities: Probably slightly divergent gaze. Clinical correlation is needed. Bones/joints: Unremarkable. No acute fracture. Soft tissues: Unremarkable. CT/CT head wo con* [id number] IMPRESSION: 1. No acute intracranial findings. 2. Probably slightly divergent gaze. Clinical correlation is needed.
[2022-08-05] MEDS: metoclopramide 5 mg/mL SDV 2 mL IVP (16:11)
[2022-08-05 16:45] LABS: Partial Thromboplastin Time 40.5 SECONDS (23.9-36.7)
[2022-08-05] MEDS: scopolamine 1.5 Patch 1 PATCH TRANSDERMA (17:40)
[2022-08-05] MEDS: isosorbide mononitrate ER 30 mg Tablet 15 MG PO (17:40)
[2022-08-05] MEDS: sennosides-docusate Tablet 4 TAB PO (17:40)
[2022-08-05] MEDS: fentaNYL 50 mcg/mL INJ 2mL IVP (17:49)
--- NOTE | 2022-08-05 18:37 | PC.NURSE ---
Right groin sheath removed. Stitch removed first. Cath tip intact. No hematomas, bleeding or bruising noted at site. Pressure held ntil hemostatis obtained. Gauze and bioclusive dressing applied.
--- NOTE | 2022-08-05 19:41 | PC.NURSE ---
Patient has been experiencing severe nausea and vomiting. She is also experiencing blurry vision. Dr. Rey and Dr. Hall both notified. Dr. Rey ordered reglan and Dr. Hall sent Dr. Yanez to come see patient. Neuro assessment done by both nurse and Dr. Yanez. Order was placed for CT scan of the head. Nurse has not be given any results at this time. Sheath was pulled at 1821 and patient continues to experience nausea and vomiting. Patient did vomit almost immediately after pressure was relieved from the groin and dressing pllaced which causes a hard area to form over around puncture site. This nurse held pressure for an additional 10 minutes and area softened. No pain reported. Retropertineal area checked and no pain reported. Report given to chopped strand operator nurse.
[2022-08-06] VITALS (12 sets, daily range): BP systolic 98–171; BP diastolic 49–78; PULSE 49–70; RESP 12–31; TEMP 36.4–36.8; O2SAT 94–96
--- NOTE | 2022-08-06 00:15 | PC.NURSE ---
Patient assisted to sit on side of bed. Patient became dizzy and complained of nausea. Patient asked to return to supine position. Patient recovered within minutes. Assisted patient to reposition on left side.
--- NOTE | 2022-08-06 01:00 | PC.NURSE ---
Patient incontinent of small soft brown stool. Patient washed and linens changed.
[2022-08-06] MEDS: metoclopramide 5 mg/mL SDV 2 mL IVP ×2 (01:02→08:28)
[2022-08-06 05:56] LABS: Basophils % 0.3 %; Eosinophils # 0.1 10^3/uL (0.0-0.8); Eosinophils % 0.5 %; Hematocrit 35.6 % (37.0-47.0); Hemoglobin 11.9 g/dL (11.5-15.3); Lymphocytes # 2.7 10^3/uL (0.8-4.8); Mean Corpuscular HGB Conc 33.4 g/dL (30.0-36.0); Mean Corpuscular Hemoglobin 30.9 pg (28.0-34.0); Mean Corpuscular Volume 92.5 fl (81-99); Mean Platelet Volume 11.2 fL (7.4-10.4); Monocytes # 0.6 10^3/uL (0.2-0.9); Monocytes % 6.2 %; Neutrophils # 6.85 10^3/uL (1.8-7.7); Neutrophils % 66.5 %; Nucleated Red Blood Cells % 0 %; Platelet Count 190 10^3/cmm (130-400); Red Blood Count 3.85 10^6/uL (4.1-5.3); Red Cell Distribution Width 15.2 % (12.1-15.1); White Blood Count 10.3 10^3/uL (4.0-10.0)
--- NOTE | 2022-08-06 07:42 | PC.NURSE ---
Physician notified of visual changes,n/v and dizziness. Patient is unable to move left eye. Physician ordered CTA of head and neck, if that is insignificant than will get an MRI
--- NOTE | 2022-08-06 08:38 | PM.PN ---
Subjective Subjective: No chest pain. She has been nauseous and vomited last night. Underwent CT head and CTA head and neck Medications: Reviewed: Yes Vitals/I&O/Wt Last Vital Signs Temp 98.1 F 08/06/22 08:00 Pulse 62 08/06/22 08:00 Resp 18 08/06/22 08:00 BP 155/72 08/06/22 08:00 Pulse Ox 96 08/06/22 08:00 O2 Del Method 08/06/22 08:00 08/05/22 08/06/22 08/06/22 22:59 06:59 14:59 Intake Total 546.25 / 636.625 100 / 736.625 Output Total 500 / 500 Balance 546.25 / 636.625 -400 / 236.625 Weight last 48 hrs Weight 131 lb 6.4 oz Weight 140 lb 2 oz Weight 134 lb 5 oz Weight 127 lb Physical Exam Narrative: GENERAL: Averagely built and averagely nourished in no acute distress HEENT: Extraocular movement intact. No pallor or icterus. NECK: central trachea, No JVD, No carotid bruit. CARDIOVASCULAR SYSTEM: S1-S2 regular. No murmur rubs or gallops. RESPIRATORY SYSTEM: Chest clear to auscultation. No wheezes rhonchi or rubs heard. No use of accessory muscles. ABDOMEN: Soft, nontender and nondistended. Normal bowel sounds present. No hepatosplenomegaly appreciated. EXTREMITIES: No cyanosis or edema. No signs of chronic venous insufficiency. Right groin with no significant hematoma or bruising, good periphearl pulses. 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 c/o blurred and double vision SKIN: Normal turgor and temperature. PSYCH: Normal insight and judgment. Const: COMMON NORMALS: alert Resp: COMMON NORMALS: clear to auscultation bilaterally AUSCULTATION: clear to auscultation bilaterally Neuro: SENSORIUM/ORIENTATION: Yes alert Data : 08/06/22 05:26 08/05/22 04:41 A&P Assessment and plan (1) Chest pain: Concern for unstable angina on arrival s/p C yesyerday. Patent POZO to LAD and VG to OM. -mild RCA disease. -remains CP free today. started on Low dose imdur -continue ASA, plavix, statin. (2) Coronary artery disease: S/p CABG x2 (3) Hyperlipidemia: (4) Bradycardia: HR in 50's, no pauses Plan Dizziness/Blurred vision : being evaluated by primary team. Nausea/vomiting Hypertension Hypothyroidism History of TIA Gastroesophageal reflux disease Osteoarthritis Attestations Medical Necessity Statement*: As per primary team. Time Spent in Patient Care: 16 - 35 minutes Coding Level of Care Code Acute Animal Caretaker Supervisor for Chg Fwd Exam Expanded Problem Focused Diagnoses Chest pain R07.9 Coronary artery disease I25.10 Hyperlipidemia E78.5 Bradycardia R00.1
--- NOTE | 2022-08-06 09:02 | CT_ITS ---
WS: [id number] CT ANGIOGRAM CEREBRAL AND CAROTID ARTERIES HISTORY: Unable to move eye TECHNIQUE: CT angiogram is performed of the carotid and cerebral arteries. During arterial injection imaging is obtained from the skull vertex to the aortic arch in 1.25 mm imaging. Coronal and sagittal reformats are submitted. Additional multi planar reformats of the carotid and cerebral arteries are submitted, MIP imaging also reviewed. NASCET criteria utilized. [facility] at least one of these dose optimization techniques: automated exposure control; mA and/or kV adjust ment per patient size (includes targeted exams where dose is matched to clinical indication); or iter ative reconstruction. CONTRAST: Omnipaque 350; 100 mL IV. DLP: 1576.32 mGy.cm COMPARISON: Noncontrast CT head 08/05/[address] head first performed. No intracranial hemorrhage is identified. Mild low-attenuation s urround the ventricles and through the optic radiations but no definite interval change. Mild small v essel ischemic disease. No midline shift. No acute thrombus is noted. Superior ophthalmic veins are s imilar to the prior study. Focal areas of increased density in the posterior fossa extending into the midbrain and samantha are probably calcifications and not thrombus. Carotid Angiogram: Right carotid: Common carotid artery: Arises normally from the innominate artery. No significant plaque or stenosis. Internal carotid artery: Small amount of plaque at the origin no high-grade stenosis. External carotid artery: Patent. Left carotid: Common carotid artery: Arises normally from the aorta. No significant plaque or stenosis. Internal carotid artery: Small amount of intimal thickening and soft plaque at the bifurcation. No hi gh-grade stenosis. External carotid artery: Patent. Right vertebral artery: Small caliber. Hypoplastic distal RIGHT vertebral artery. Left vertebral artery: Unremarkable. Arises normally from the subclavian artery. Subclavian arteries: No stenosis or significant abnormality. Upper thorax: Normal. Thyroid gland: Normal. Osseous structures: Advanced degenerative disc disease in the cervical and upper thoracic spines. Mil d anterior wedging of C5, C6 and C7. CEREBRAL ANGIOGRAM: Intracranial vertebral arteries: Small caliber hypoplastic distal RIGHT vertebral artery. Dominant LE FT vertebral artery is patent. Basilar artery: Proximal artery is very small caliber. Greater than 50% stenosis. No aneurysm. Intracranial Internal carotid arteries: Mild atherosclerotic plaque. No high-grade stenosis. Mild LEF T M1 segment atherosclerotic disease. No aneurysms. Middle cerebral arteries: Normal. Anterior cerebral arteries and ACOM: Normal. Posterior cerebral arteries and PCOM's: Normal. Dural venous sinuses are normally enhancing. Mastoid air cells: Normal. Paranasal sinuses: Normal. Calvarium: Normal. CT/CT angio headneck* [id number] IMPRESSION: 1. No significant cervical carotid artery stenosis. Mild plaque in the bifurca tions. 2. 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 3. Small caliber/hypoplastic distal RIGHT vertebral artery. No thrombus is gay ntified along its course. 4. No acute intracranial hemorrhage. 5. Mild small vessel ischemic disease. No interval change since the prior stud y. 6. Recommend further evaluation with MRI brain to evaluate for possible pontin e or brainstem infarct. MR angiographic [place] of [place] recommended to evaluat e the posterior circulation. Notified Abimbola MD Isabel at 08/06/2022 10:59 AM.
[2022-08-06] MEDS: iohexol 350 mg/mL 100 mL Btl IV (09:32)
--- NOTE | 2022-08-06 12:19 | MR_ITS ---
WS: [id number] MRA HEAD TECHNIQUE: Axial 3-D TOF images obtained with axial images and axial, sagittal, and coronal 2-D refor matted images. CLINICAL INFORMATION: unable to move left eye COMPARISON: CTA August 06, 2022 FINDINGS: Distal RIGHT vertebral artery ends in PICA. Dominant anterior circulation. Distal LEFT vertebral karlie ry is patent. Somewhat diminutive basilar artery with approximately 50% stenosis involving the mid ba silar artery unchanged since the CTA. Distal basilar artery remains patent. Hypoplastic P1 segments. Persistent bilateral relocation commissioner with normal vascularity to the [employer] territory. Both ICAs are patent at the skull base. Patent anterior communicating artery. Normal vascularity to t he KANA and MCA territories bilaterally. Short segment moderate stenosis LEFT M1 segment. Distal vesse l remains patent. MR/MR angio head wo con [id number] IMPRESSION: 1. Distal RIGHT vertebral artery ends in PICA. Distal LEFT vertebral artery is patent. 2. Basilar artery is patent and somewhat diminutive. Dominant anterior circula tion with persistent bilateral relocation commissioner supplying the [employer] territory. 3. Approximately 50% stenosis involving the mid basilar artery unchanged since the CTA. Distal basilar artery remains patent. 4. Moderate stenosis involving the LEFT M1 segment. Distal vessel remains zazueta nt. 5. Otherwise unremarkable MRA.
--- NOTE | 2022-08-06 12:24 | MR_ITS ---
WS: [id number] MRI HEAD WITHOUT CONTRAST TECHNIQUE: Sagittal T1, T2 axial, T2 axial FLAIR, axial and coronal T1 images, axial susceptibility w eighted imaging, axial diffusion weighted images, and coronal T2 images were obtained. CLINICAL INFORMATION: unable to move left eye COMPARISON: CTA August 06, 2022 FINDINGS: Tiny focus of restricted diffusion involving the dorsal samantha at the junction of the 4th ventricle delia suring 4 mm consistent with a tiny focus of acute ischemia. No other foci of restricted diffusion. Mo derate small vessel changes. Mild parenchymal volume loss. Normal visualized vascular flow voids at the base. No extra-axial fluid collections. Chronic lacunar infarcts RIGHT cerebellum. Tiny chronic lacunar infarcts LEFT thalamus. Mild central canal stenosis in the upper cervical spine partially visualized. Normal optic chiasm and pituitary infundibulum. Normal cavernous sinuses and Meckel's cave. Mild symmetric atrophy temporal lobes and hippocampal formations. No hemosiderin on susceptibly weighted images. Normal posterior rex opharynx. Paranasal sinuses and mastoid air cells are well aerated. MR/MR head wo con* [id number] IMPRESSION: 1. Tiny 4 mm focus of acute ischemia in the dorsal samantha adjacent to the 4th ve ntricle. 2. Moderate small vessel changes with mild parenchymal volume loss. 3. No hemosiderin on susceptibly weighted images. 4. Mild central canal stenosis in upper cervical spine partially visualized. Notified Abimbola Hall MD at 08/06/2022 5:08 PM.
[2022-08-06 12:54] LABS: Blood Urea Nitrogen 10 mg/dL (8-23); Calcium 8.1 mg/dL (8.5-10.5); Carbon Dioxide 18 mmol/L (22-29); Chloride 104 mmol/L (98-107); Glucose 74 mg/dL (65-115); Osmolality Calculated 270 mOsm/kg (285-295); Sodium 131 mmol/L (136-145)
[2022-08-06 13:04] LABS: Anion Gap 13.1 (5-19); Potassium 4.1 mmol/L (3.5-5.1)
[2022-08-06] MEDS: clopidogrel 75 mg Tablet PO (13:21)
[2022-08-06] MEDS: atorvastatin 40 mg Tablet PO (13:22)
[2022-08-06] MEDS: aspirin 81 mg Chew Tablet PO (13:22)
--- NOTE | 2022-08-06 14:34 | PM.PN ---
Subjective Subjective: Yesterday patient complained of nausea after her cath procedure and was given Zofran. Later on during the day she complained of some blurry vision but she had also had fentanyl recently. Patient was seen around the afternoon and neuro exam was normal at the time. Head CT negative for bleed or acute stroke. Patient later on in the evening had fentanyl given when our sheath was removed. She complained of nausea at that time. This morning nursing staff reported that last night around time of night medications being given patient sat up and vomited. He did not feel good. However physician was not notified of this. Patient had her eyes covered with a towel. This morning around 730 to 8 AM it was noted that patient could not move her left away in any direction. Pupils were reactive to light. Was notified and ordered a CTA head and neck. CTA head and neck showed 1.? No significant cervical carotid artery stenosis. Mild plaque in the bifurcations. 2.? 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 3.? Small caliber/hypoplastic distal RIGHT vertebral artery. No thrombus is identified along its course. 4.? No acute intracranial hemorrhage. 5.? Mild small vessel ischemic disease. No interval change since the prior study. 6.? Recommend further evaluation with MRI brain to evaluate for possible pontine or brainstem infarct. MR angiographic [place] of [place] recommended to evaluate the posterior circulation. ? On-call neurologist telestroke was contacted at [facility] who evaluated the patient at bedside using video chat. They recommended to continue patient on aspirin and Plavix at this time. She is not a candidate for tPA due to time of onset unknown and the fact that she was on heparin yesterday with high PTT. Recommended doing MRI and MR of head. NIH 1. Vitals/I&O/Wt Last Vital Signs Temp 98.2 F 08/06/22 11:55 Pulse 60 08/06/22 11:55 Resp 18 08/06/22 11:55 BP 154/78 08/06/22 11:55 Pulse Ox 94 08/06/22 11:55 O2 Del Method 08/06/22 11:55 08/05/22 08/06/22 08/06/22 22:59 06:59 14:59 Intake Total 546.25 / 636.625 100 / 073.919 2461 / 1000 Output Total 500 / 500 Balance 546.25 / 636.625 -400 / 378.631 1598 / 1000 Weight last 48 hrs Weight 59.602 kg Weight 63.56 kg Weight 60.923 kg Physical Exam Narrative: General: No acute distress, awake and alert, chest pain-free. HEENT: EOMI right eye. Left eye extraocular movements impaired. Chest: Chest clear to auscultation CVS: S1-S2 regular, no gross murmurs Abdomen: Soft, nontender, no organomegaly, bowel sounds present Neuro: Unable to move left eye, NIH 1. Able to move all 4 extremities, no drift noted. Face symmetrical. [id number] normal. Rest of cranial nerves intact. Data : 08/06/22 05:26 08/06/22 05:26 A&P Assessment and plan (1) Unstable angina pectoris: With history of two-vessel CABG.? Worsening angina over the last 3 months.? Currently at rest. Patient had angiogram yesterday. Grafts are patent. Medically managed at this time. Imdur added by cardiology. Continue aspirin, Plavix, Imdur. Switch to DVT prophylaxis dose of Lovenox. Echo complete. LVEF 55%. Grade 1 diastolic dysfunction. TSH 1.79. B12 1000, folate greater than 20. Troponins negative. Hemoglobin A1c 5.4. Lipid profile complete. LDL 91. Cardiology on board. 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 Last known normal 7 PM as per nursing staff. - Not a candidate for TPA at this time - Check MR brain and MR angio [place] of [place]. - Recommend holter monitor at discharge and f/u with neurology outpatient. PT is from [place] and would like to follow up with neuro there and have heart monitor placed there. No A.fib noted on telemetry overnight however. - Family at bedside. Updated extensively. All questions answered. - Continue aspirin, plavix at this time. - Pt may need strabismus corrective surgery if no improvement in eye muscle within 6 months. Attestations Medical Necessity Statement*: Post cardiac catheterization today. Continue to monitor in hospital today for postop care. Reassess patient tomorrow. Possible discharge within next 24 to 48 hours. Time Spent in Patient Care: spent 60 min. discussed with radiology on phone, tele stroke doc, examined patient twice, saw family multiple times, coordinated care with RN and other personell. Coding Level of Care Code Acute Staple Side Laster for [place] Diagnoses Unstable angina pectoris I20.0 Coronary artery disease I25.10 Hyperlipidemia E78.5
[2022-08-06] MEDS: ferrous gluconate 324 mg Tablet PO (17:04)
[2022-08-06] MEDS: isosorbide mononitrate ER 30 mg Tablet 15 MG PO (17:04)
[2022-08-06] MEDS: enoxaparin 40 mg/0.4 mL Syringe SUBCUT (17:05)
[2022-08-06] MEDS: gabapentin 300 mg Capsule PO (20:26)
[2022-08-07] VITALS (8 sets, daily range): BP systolic 120–175; BP diastolic 57–77; PULSE 53–62; RESP 15–20; TEMP 36.6–36.8; O2SAT 95–96
[2022-08-07] MEDS: isosorbide mononitrate ER 30 mg Tablet 15 MG PO (09:36)
[2022-08-07] MEDS: atorvastatin 40 mg Tablet PO (09:37)
[2022-08-07] MEDS: sennosides-docusate Tablet 4 TAB PO (09:37)
[2022-08-07] MEDS: clopidogrel 75 mg Tablet PO (09:37)
[2022-08-07] MEDS: pantoprazole DR 40 mg Tablet PO (09:38)
[2022-08-07] MEDS: aspirin 81 mg Chew Tablet PO (09:38)
[2022-08-07] MEDS: ferrous gluconate 324 mg Tablet PO (09:38)
[2022-08-07] MEDS: levothyroxine 75 mcg Tablet PO (09:38)
[2022-08-07] MEDS: gabapentin 300 mg Capsule PO (09:38)
[2022-08-07] MEDS: ondansetron 2 mg/ML SDV 2 mL 4 MG IVP ×2 (10:06→17:42)
--- NOTE | 2022-08-07 10:35 | PC.SOCIAL ---
Pg 2 IMM Explained to pt Pg 2 IMM. No questions voiced. Provided pt a copy. Initialed, dated, & timed a copy & placed in chart.
--- NOTE | 2022-08-07 12:17 | P.DS_ITS ---
Discharge Providers Date of Admission: 08/04/22 12:11 Date of Discharge: August 07, 2022 Attending Provider at Admission: Shade Capps MD Attending Provider at Discharge: Abimbola Hall MD Diagnoses at Discharge Discharge Diagnosis (1) Unstable angina pectoris: Status: Acute (2) Coronary artery disease: Status: Acute (3) Hyperlipidemia: Status: Acute Reason for Visit Reason for Visit: CHEST PAIN Brief History: As per Dr. Olvera Sheila Ybarra is a 86 year old female with history of hypothyroidism, post two- vessel CABG in 2014 who gets most of her care at [facility] was brought into the ER through [facility] today.? History taken through the patient and family member at bedside. As per the patient he has been having on and off episodes of chest pain for last 2 to 3 months more so related 2 weeks for which she had seen her outpatient card iologist diagnosed a few had scheduled her for an angiogram.? Today patient was resting when she developed chest pain along with dizziness and nausea with feeling of chest pressure hence EMS was called and she was brought to the ER. Currently patient is on nitro drip.? She denies of having any active chest pain or chest pressure currently.? She states she has been taking her medications regularly though there have been times on and off in between when she forgets. In the ER she was given 1 full dose of Lovenox and started on nitro drip. Hospital Course Hospital Course Pt had cath done. CABG grafts patent. Please see angiodram report for details. Heart disease to be medically management. Pt started on imdur. During hospital stay, patient complained of nausea after her cath procedure and was given Zofran.? Later on during the day she complained of some blurry vision but she had also had fentanyl recently. Patient was seen around the afternoon and neuro exam was normal at the time.? Head CT negative for bleed or acute stroke. NIH 0. Patient later on in the evening had fentanyl given when femoral sheath was removed.? She complained of nausea at that time. Next morning nursing staff reported that last night around time of night medications being given patient sat up and vomited.? He did not feel good.? However physician was not notified of this.? Patient had her eyes covered with a towel. In morning around 730 to 8 AM it was noted that patient could not move her left away in any direction.? Pupils were reactive to light.? Was notified and ordered a CTA head and neck.? CTA head and neck showed 1.? No significant cervical carotid artery stenosis. Mild plaque in the bifurcations. 2.? 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 3.? Small caliber/hypoplastic distal RIGHT vertebral artery. No thrombus is identified along its course. 4.? No acute intracranial hemorrhage. 5.? Mild small vessel ischemic disease. No interval change since the prior study. 6.? Recommend further evaluation with MRI brain to evaluate for possible pontine or brainstem infarct. MR angiographic upper [place] of [place] recommended to evaluate the posterior circulation. ? On-call neurologist telestroke was contacted at [facility] who evaluated the patient at bedside using video chat. They recommended to continue patient on aspirin and Plavix at this time.? She is not a candidate for tPA due to time of onset unknown and the fact that she was on heparin drip after cath with high PTT. MRi brain and MR angio upper [place] was completed. It shows: 1.? Tiny 4 mm focus of acute ischemia in the dorsal samantha adjacent to the 4th ventricle. 2.? Moderate small vessel changes with mild parenchymal volume loss. 3.? No hemosiderin on susceptibly weighted images. 4.? Mild central canal stenosis in upper cervical spine partially visualized 1.? Distal RIGHT vertebral artery ends in PICA. Distal LEFT vertebral artery is patent. 2.? Basilar artery is patent and somewhat diminutive. Dominant anterior circulation with persistent bilateral overlock sewing machine operator supplying the CHEMICAL ETCHING PROCESSOR territory. 3.? Approximately 50% stenosis involving the mid basilar artery unchanged since the CTA. Distal basilar artery remains patent. 4.? Moderate stenosis involving the LEFT M1 segment. Distal vessel remains patent. 5.? Otherwise unremarkable MRA. Day of discharge, patient complains of seeing kids and people in the room that are not present. She also sees the world map on the wall on other's faces. She is alert oriented x3 however and well aware of her surroundings. Daughter and her son in law present at bedside. I discussed with Neurology over the phone and opthalmology over the phone. We don't have them available for consult today in hospital. Ophthalmology recommended pt have a 30-2 visual field testing as outpatient. 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 Patient also recommended to get an event monitor to r/o any occult atrial fibrillation. Her telemetry here in hospital did not show any evidence of arrhythmia and remained in sinus rhythm. Patient will be discharged on aspirin and plavix at this time as per official recommendations from [facility] tele stroke service who evaluated patient bedside via teleconference facility during hospital stay. Patient is from [place] and will be travelling to [place] today with her daughter. Family and patient prefer to follow up in [place] and get heart monitor there as well. Patient will follow up with PCP there on Jul and with her neurologist Dr. Prince and opthalmology there. Patient and family counselled extensively regarding patient's care. Patient given disc of her imaging studies as well. Recommend to keep patient's left eye patched to avoid double vision and nausea. All questions answered to patient's and family's satisfaction. Dunn removed. Enema given as per pt request. SHe was able to void on her own and have a BM prior to discharge. Home health referral placed for patient as well. Seen by PT and OT. Physical Exam 2 Narrative: General: No acute distress, awake and alert, chest pain-free. HEENT: EOMI right eye. Left eye extraocular movements improved. Chest: Chest clear to auscultation CVS: S1-S2 regular, no gross murmurs Abdomen: Soft, nontender, no organomegaly, bowel sounds present Neuro: Able to move left eye vertically up and down however not horizontally side to side. Unable to abduct or adduct eye. Movement improved since yesterday, Able to move all 4 extremities, no drift noted. Face symmetrical. [id number] normal. Rest of cranial nerves intact. Discharge Data Studies Completed and Pending Completed Studies During Hospitalization Category Date Time Status CT head wo con* [id number] Stat Cat Scan 08/05/22 16:01 Completed CTA head neck [CT angio headneck* [id number]] Stat Cat Scan 08/06/22 09:02 Completed XR chest 1V portable [id number] Stat Exams 08/04/22 10:58 Completed MR angio head wo con [id number] Stat MRI 08/06/22 12:19 Completed MR head wo con* [id number] Stat MRI 08/06/22 12:24 Completed CV. echo complete* [id number] Routine Ultrasound 08/04/22 14:25 Completed Pending at discharge Category Date Time Status SUPERVISOR MIRROR FABRICATION request for service Routine Exams 08/05/22 08:37 Taken Radiology Impressions Chest X-Ray 08/04/22 10:58 IMPRESSION: No acute finding. Head CT 08/05/22 16:01 IMPRESSION: 1. No acute intracranial findings. 2. Probably slightly divergent gaze. Clinical correlation is needed. Head/Neck CTA 08/06/22 09:02 IMPRESSION: 1. No significant cervical carotid artery stenosis. Mild plaque in the bifurcations. 2. 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 3. Small caliber/hypoplastic distal RIGHT vertebral artery. No thrombus is identified along its course. 4. No acute intracranial hemorrhage. 5. Mild small vessel ischemic disease. No interval change since the prior study. 6. Recommend further evaluation with MRI brain to evaluate for possible pontine or brainstem infarct. MR angiographic upper [place] recommended to evaluate the posterior circulation. Notified Abimbola Hall MD at 08/06/2022 10:59 AM. Head MRA 08/06/22 12:19 IMPRESSION: 1. Distal RIGHT vertebral artery ends in PICA. Distal LEFT vertebral artery is patent. 2. Basilar artery is patent and somewhat diminutive. Dominant anterior circulation with persistent bilateral overlock sewing machine operator supplying the CHEMICAL ETCHING PROCESSOR territory. 3. Approximately 50% stenosis involving the mid basilar artery unchanged since the CTA. Distal basilar artery remains patent. 4. Moderate stenosis involving the LEFT M1 segment. Distal vessel remains patent. 5. Otherwise unremarkable MRA. Head MRI 08/06/22 12:24 IMPRESSION: 1. Tiny 4 mm focus of acute ischemia in the dorsal samantha adjacent to the 4th ventricle. 2. Moderate small vessel changes with mild parenchymal volume loss. 3. No hemosiderin on susceptibly weighted images. 4. Mild central canal stenosis in upper cervical spine partially visualized. Notified Abimbola Hall MD at 08/06/2022 5:08 PM. Laboratory Results WBC 10.3 10^3/uL (4.0-10.0) H 08/06/22 05:26 RBC 3.85 10^6/uL (4.1-5.3) L 08/06/22 05:26 Hgb 11.9 g/dL (11.5-15.3) 08/06/22 05:26 Hct 35.6 % (37.0-47.0) L 08/06/22 05:26 MCV 92.5 fl (81-99) 08/06/22 05:26 MCH 30.9 pg (28.0-34.0) 08/06/22 05:26 MCHC 33.4 g/dL (30.0-36.0) 08/06/22 05:26 RDW 15.2 % (12.1-15.1) H 08/06/22 05:26 Plt Count 190 10^3/cmm (130-400) 08/06/22 05:26 MPV 11.2 fL (7.4-10.4) H 08/06/22 05:26 Neut % (Auto) 66.5 % 08/06/22 05:26 Lymph % (Auto) 26.0 % 08/06/22 05:26 [place] % (Auto) 6.2 % 08/06/22 05:26 Eos % (Auto) 0.5 % 08/06/22 05:26 Baso % (Auto) 0.3 % 08/06/22 05:26 Neut # (Auto) 6.85 10^3/uL (1.8-7.7) 08/06/22 05:26 Lymph # (Auto) 2.7 10^3/uL (0.8-4.8) 08/06/22 05:26 [place] # (Auto) 0.6 10^3/uL (0.2-0.9) 08/06/22 05:26 Eos # (Auto) 0.1 10^3/uL (0.0-0.8) 08/06/22 05:26 Baso # (Auto) 0.0 10^3/uL (0.0-0.1) 08/06/22 05:26 Nucleated RBC % (auto) 0 % 08/06/22 05:26 Nucleated RBCs # 0.0 /100WBC 08/06/22 05:26 PT 14.60 SECONDS (12.1-14.9) 08/04/22 11:00 INR 1.11 (0.8-1.2) 08/04/22 11:00 APTT 40.5 SECONDS (23.9-36.7) H D 08/05/22 16:14 D-Dimer 1.22 ug/mIFEU (0-0.59) H 08/04/22 11:00 Sodium 131 mmol/L (136-145) L 08/06/22 05:26 Potassium 4.1 mmol/L (3.5-5.1) 08/06/22 05:26 Chloride 104 mmol/L (98-107) 08/06/22 05:26 Carbon Dioxide 18 mmol/L (22-29) L 08/06/22 05:26 Anion Gap 13.1 (5-19) 08/06/22 05:26 BUN 10 mg/dL (8-23) 08/06/22 05:26 Creatinine 0.6 mg/dL (0.5-0.9) 08/06/22 05:26 GFR Calculation Not Reportable 08/06/22 05:26 Glucose 74 mg/dL (65-115) 08/06/22 05:26 Estimat Average Glucose 108 08/05/22 04:41 Hemoglobin A1c 5.4 % (4.0-6.0) 08/05/22 04:41 Calculated Osmolality 270 mOsm/kg (285-295) L 08/06/22 05:26 Calcium 8.1 mg/dL (8.5-10.5) L 08/06/22 05:26 Phosphorus 2.9 mg/dL (2.5-4.5) 08/05/22 04:41 Magnesium 2.3 mg/dL (1.7-2.3) 08/05/22 04:41 Iron 61 ug/dL (37-145) 08/04/22 11:00 TIBC 291 mcg/dl 08/04/22 11:00 % Saturation 20.9 % (20-50) 08/04/22 11:00 Unsat Iron Binding 230 ug/dL (112-347) 08/04/22 11:00 Total Bilirubin 0.5 mg/dL (0.15-1.2) 08/05/22 04:41 AST 20 U/L (0-32) 08/05/22 04:41 ALT 15 U/L (0-33) 08/05/22 04:41 Alkaline Phosphatase 59 U/L (35-105) 08/05/22 04:41 Troponin T Baseline 9 ng/L (0-10) 08/04/22 11:00 Troponin T 120 Minute 8.64 ng/L (0-10) 08/04/22 13:35 Delta Troponin T -0.36 ABS# (0-10) L 08/04/22 13:35 Troponin T Hi Sens 6Hr 9.23 ng/L (0-10) 08/04/22 17:15 Troponin T Hi Sens 6Hr Delta 0.23 ng/L (0-12) 08/04/22 17:15 NT-Pro-B Natriuret Pep 195 pg/mL (0-450) 08/04/22 11:00 Total Protein 6.1 g/dL (6.6-8.7) L 08/05/22 04:41 Albumin 3.6 g/dL (3.5-5.2) 08/05/22 04:41 Globulin 2.5 g/dL (1.3-4.6) 08/05/22 04:41 Triglycerides 93 mg/dL (0-150) 08/05/22 04:41 Cholesterol 165 mg/dL (0-200) 08/05/22 04:41 LDL Cholesterol, Calc 91 mg/dL (50-129) 08/05/22 04:41 Total VLDL Cholesterol 19 mg/dL (0-30) 08/05/22 04:41 HDL Cholesterol 55 mg/dL (60-100) L 08/05/22 04:41 Cholesterol/HDL Ratio 3.00 mg/dL (0.0-4.40) 08/05/22 04:41 Vitamin B12 1118 pg/mL (232-1245) 08/04/22 11:00 Folate > 20.0 ng/mL (4.8-37.3) 08/04/22 16:00 TSH 1.79 uIU/mL (0.27-4.20) 08/04/22 16:00 Urine Color Yellow (Yellow) 08/04/22 15:25 Urine Appearance Clear (CLEAR) 08/04/22 15:25 Urine pH 7 (5-7) 08/04/22 15:25 Ur Specific [place] 1.005 (1.005-1.030) 08/04/22 15:25 Urine Protein Neg (Negative) 08/04/22 15:25 Urine Glucose (UA) Norm (Normal) 08/04/22 15:25 Urine Ketones Negative (Negative) 08/04/22 15:25 Urine Blood Neg (Negative) 08/04/22 15:25 Urine Nitrate Negative (Negative) 08/04/22 15:25 Urine Bilirubin Neg (Negative) 08/04/22 15:25 Urine Urobilinogen Norm mg/dL (Negative) 08/04/22 15:25 Ur Leukocyte Esterase Trace (Negative) H 08/04/22 15:25 Urine RBC None /hpf (0-2) 08/04/22 15:25 Urine WBC 0-4 /hpf (0-5) H 08/04/22 15:25 Ur Squamous Epith Cells Rare /hpf (0-5) 08/04/22 15:25 Amorphous Sediment Not Reportable 08/04/22 15:25 Urine Bacteria Trace /hpf (NONE) 08/04/22 15:25 Urine Opiates Screen Negative ng/mL (Negative) 08/04/22 15:25 Ur Barbiturates Screen Negative ng/mL (Negative) 08/04/22 15:25 Ur Phencyclidine Scrn Negative ng/mL (Negative) 08/04/22 15:25 Ur Amphetamines Screen Negative ng/mL (Negative) 08/04/22 15:25 U Benzodiazepines Scrn Negative ng/mL (Negative) 08/04/22 15:25 Urine Cocaine Screen Negative ng/mL (Negative) 08/04/22 15:25 U Marijuana (THC) Screen Negative ng/mL (Negative) 08/04/22 15:25 Vitals Last Vital Signs Temp 97.9 F 08/07/22 08:00 Pulse 60 08/07/22 08:00 Resp 18 08/07/22 08:00 BP 155/72 08/07/22 08:00 Pulse Ox 95 08/07/22 08:00 O2 Del Method 08/07/22 08:00 Discharge Plan Discharge Patient Disposition: Home Health Service Condition: Stable Prescriptions: New ferrous gluconate 324 mg (37.5 mg iron) Tablet 324 mg PO BIDWM 30 Days Qty: 30 0RF atorvastatin 40 mg Tablet 40 mg PO DAILY 30 Days Qty: 30 0RF isosorbide mononitrate 30 mg Tablet Extended Release 24 Hr 15 mg PO BID 30 Days Qty: 30 0RF Miralax 17 gram/dose powder 17 g PO DAILY PRN (Reason: constipation) Qty: 119 0RF Continued cetirizine 10 mg Tablet 10 mg PO DAILY PRN (Reason: Allergy Symptoms) Vitamin B-12 1,000 mcg Tablet 1,000 mcg PO DAILY tramadol 50 mg tablet 50 mg PO BID PRN (Reason: Pain) clopidogrel 75 mg tablet 75 mg PO DAILY 30 Days Qty: 30 0RF levothyroxine 75 mcg tablet 75 mcg PO DAILY 30 Days Qty: 30 0RF pantoprazole 40 mg tablet,delayed release (DR/EC) 40 mg PO DAILY 30 Days Qty: 30 0RF gabapentin 300 mg capsule See Rx Instructions .ROUTE .COMPLEX 14 Days Qty: 28 0RF Rx Instructions: 300 mg orally in the morning / 600 mg orally in the evening aspirin 81 mg Tablet,Chewable 81 mg PO DAILY 30 Days Qty: 30 0RF Discontinued simvastatin 40 mg tablet 40 mg PO DAILY Discharge Orders: Discharge Order (Routine); Ordered 08/07/22 Ordered By: Abimbola Hall Referrals: [facility] [Other] Discharge Diet: Cardiac Discharge Activity: Resume usual activity Patient Instructions: Iron Supplements (By mouth), Isosorbide Mononitrate (By mouth) (Imdur, Imdur ER, Ismo), Atorvastatin (By mouth), Clopidogrel (By mouth), Polyethylene Glycol 3350 (By mouth), Ischemic Stroke (IP), Opioid Safety, Post Angiogram Home Care Instructions, Pain Management, Stroke Stoplight Activity Restrictions/Additional Instructions: Please follow-up with your neurologist in [place] when you get back.SENT REFERRAL TO DR PRINCE NEUROLOGIST FOR APPOINTMENT Please follow-up with your primary care doctor this upcoming . APPOINTMENT WITH DR COLBERT ON SaturdayAUG 09 AT 2:00 PM I would recommend you to wear an event monitor for 14 to 28 days to rule out any underlying cardiac arrhythmia. However during her hospital stay here your heart rhythm has stayed normal sinus rhythm. There was no evidence of atrial fibrillation. Your imaging studies have been provided to you on disc. I called Dr. Prince's office to discuss your care and have left a message. When I get a callback, I will brief him on your situation. Discussed with biodiesel product manager here over the phone. Patient will need 30-2 visual field testing as an outpatient. I recommend following up with an biodiesel product manager when you get to [place]. If patient's current symptoms including her vision worsens or any new symptoms develop, please reach out to the nearest emergency room. Discharge Attestations Time Spent in Discharge Care*: greater than 30 min Quality Metrics Clinical Quality Measures [ Cerebrovascular Accident { Contraindication to Antithrombotic: Medical contraindication; Contraindication to Anticoagulation: Overlap treatment not indicated; Contraindication to Statin: None; Statin prescribed; Contraindication to antithrombotic day 2: None; Antithrombotic given day 2; Contraindication to tPA: Did not meet criteria; Symptom Onset Unknown: Yes; Reason stroke education not provided: Stroke education provided to patient; Rehab services assessed: Activities of daily living assessment, Rehabilitation assessment, Physical therapy, Occupational therapy;}] Coding Level of Care Code Acute [facility] note Diagnoses Unstable angina pectoris I20.0 Coronary artery disease I25.10 Hyperlipidemia E78.5
--- NOTE | 2022-08-07 13:42 | PC.NURSE ---
pt became nauseous when physical therapy worked with pt and helped her sit on edge of bed.zofran given with relief obtained.pt states she sees movie like scenes on wall of room.describes a yellow background...pink people moving arms quickly .dr curran aware.pt cont to wear left eye patch as directed by neuro consult md.
--- NOTE | 2022-08-07 14:58 | PC.NURSE ---
twe given as ordered.return of moderate amt pasty soft brown stool noted.pt states she voided as well.tolerated procedure well.
--- NOTE | 2022-08-07 18:04 | PC.NURSE ---
discharge instructions given and explained to pt and daughter.both verb understanding of instructions.medications provided through meds to beds program.discharged via w/c to exit at this time.daughter to drive pt home
== END 2022-08-07 18:05 | disposition home health service (06) | DRG 286 ==
LOC: ER 12:53 → MEDSURG 12:54
PROVIDERS: Internal Medicine Cardiovascular Disease; Admitting Provider Student in an Organized Health Care Education/Training Program; Emergency Provider Family Medicine; Visit Provider Internal Medicine
PROC: B2111ZZ Fluoroscopy of Multiple Coronary Arteries using Low Osmolar Contrast (ICD-10-PCS; principal; 2022-08-05 09:00)
DX: I25.110 Atherosclerotic heart disease of native coronary artery with unstable angina pectoris (principal); I63.9 Cerebral infarction, unspecified; Z95.1 Presence of aortocoronary bypass graft; E03.9 Hypothyroidism, unspecified; E78.5 Hyperlipidemia, unspecified; Z87.891 Personal history of nicotine dependence; I10 Essential (primary) hypertension; K21.9 Gastro-esophageal reflux disease without esophagitis; Z86.73 Personal history of transient ischemic attack (TIA), and cerebral infarction without residual deficits; M19.90 Unspecified osteoarthritis, unspecified site; R42 Dizziness and giddiness; H53.8 Other visual disturbances; R00.1 Bradycardia, unspecified; Z79.82 Long term (current) use of aspirin; Z79.02 Long term (current) use of antithrombotics/antiplatelets
CPT/HCPCS: 36415; 70450; 70496; 70498; 70544; 70551; 71045; 80048; 80053; 80061; 80306; 81001; 82607; 82746; 83036; 83540; 83550; 83735; 83880; 84100; 84443; 84484; 85025; 85378; 85610; 85730; 93005; 93306; 93455; 94664; 96360; 96372; 97161; 97166; 97530; 99152; 99153; 99285; C1769; C1887; C1894; J1644; J1650; J2250; J2405; J2765; J3010; J3490; J7030; Q0163; Q9967